=== PATIENT | female | born 1965 | race Caucasian/White ===

== ENCOUNTER 2018-07-17 10:30 | Inpatient (IN) | payer OTHER ==
[~2018-07-17 10:30] MED LIST: Buffered Lidocaine 0.9% SYRIN* 5 ML/SYR SYRINGE INTRADERM ONE; Methylene Blue 0.5 %* 50 MG/10 ML AMP IV ONE
[2018-07-17] MEDS ORDERED: Heparin VIAL(*) 5000 UNITS/ML VIAL (FIVE THOUSAND) ONE (10:41)
[2018-07-17] MEDS ORDERED: Clindamycin 900 MG/D5W BAG(*) 900 MG/50 ML BAG IVPB ONE (10:41)
[2018-07-17] MEDS ORDERED: Ciprofloxacin 400MG IVPREMIX(* 400 MG/200 ML BAG ONE (10:42)
[2018-07-17] MEDS ORDERED: Bupivacaine 0.25% W/EPI* 10 ML SDV ONE (11:38)
[2018-07-17] MEDS ORDERED: Propofol* 10 MG/ML 20 ML BTL IV PUSH ONE (11:46)
[2018-07-17] MEDS ORDERED: Midazolam* 1 MG/ML 5 ML VIAL (5 MG) ONE (11:46)
[2018-07-17] MEDS ORDERED: Atracurium* 10 MG/ML 10 ML VIAL ONE (11:46)
[2018-07-17] MEDS ORDERED: fentaNYL* 50 MCG/ML 2 ML VIAL (100 MCG VIAL) ONE ×3 (11:46→15:06)
[2018-07-17] MEDS ORDERED: Dexamethasone IV* 4 MG/ML 1 ML (4 MG) ONE (12:08)
[2018-07-17] MEDS ORDERED: Scopolamine 1.5 mg* PATCH TRANSDERM PRN (13:37)
[2018-07-17] MEDS ORDERED: DiMENhydriNATE IV* 50 MG/ML VIAL IV PUSH PRN (13:37)
[2018-07-17] MEDS ORDERED: Ondansetron INJ* 2 MG/ML VIAL IV PRN ×2 (13:37→15:06)
[2018-07-17] MEDS ORDERED: Acetaminophen IV 1GM/100ML * 1,000 MG/100 ML VIAL IVPB ONE (13:37)
[2018-07-17] MEDS ORDERED: Naloxone* 0.4 MG/ML 1 ML VIAL IV PRN (13:37)
[2018-07-17] MEDS ORDERED: Metoclopramide IV* 5 MG/ML 2 ML VIAL ONE (14:37)
[2018-07-17] MEDS ORDERED: Glycopyrrolate IV* 0.2 MG/ML 1 ML VIAL ONE (14:37)
[2018-07-17] MEDS ORDERED: Neostigmine Methylsulfate* 1 MG/ML 10 ML VIAL (1 mg/ml) ONE (14:37)
[2018-07-17] MEDS ORDERED: Ondansetron INJ* 2 MG/ML VIAL ONE ×2 (14:37→15:13)
[2018-07-17] MEDS: Ketorolac INJ* 30 MG/ML 1 ML VIAL IV PRN ×2 (14:38→19:45)
--- NOTE | 2018-07-17 15:05 | OP ---
Operative Report - Blank - Operative Report Date of Operation: 07/17/18 Note: Brief Operative Note Preop Dx: morbid obesity; hx Lyly fundoplication Postop Dx: same Procedure: Laparoscopic takedown of fundoplication; Antoinette en Y gastric bypass Anesthesia: GET Surgeon: Elliot [employer] Teacher: DHEERAJ Lr Fluids: 2500 ml cyrstalloid EBL: 50 ml Specimen: none Drains: one #7 KIM drain Findings: dictated
[2018-07-17] MEDS ORDERED: diPHENhydraMINE IV* 50 MG/ML 1 ml VIAL (BENADRYL) SLOW PUSH PRN (15:06)
[2018-07-17] MEDS ORDERED: HYDROmorphone INJ1* 1 MG/ML SYRINGE IV PRN ×2 (15:06)
[2018-07-17] MEDS ORDERED: Acetaminophen ADULT LIQ* 650 MG/20.3 ML UDC PO PRN (15:06)
[2018-07-17] MEDS ORDERED: Acetaminophen IV 1GM/100ML * 100 ML ONE (15:06)
[2018-07-17] MEDS ORDERED: HYDROcodone/ACET. 7.5/325 LIQ* 15 ML UDC PO PRN (15:06)
[2018-07-17] MEDS: fentaNYL* 50 MCG/ML 2 ML VIAL (100 MCG VIAL) IV PRN ×4 (15:09→15:35)
[2018-07-17] MEDS ORDERED: Ondansetron ODT TAB* 4 MG SL PRN (15:12)
[2018-07-17] MEDS ORDERED: Dextrose 50% Syringe 50 ML* 25 GM/50 ML SYRINGE IV PUSH PRN (15:16)
[2018-07-17] MEDS ORDERED: DiMENhydriNATE IV* 50 MG/ML VIAL ONE (15:32)
[2018-07-17] MEDS ORDERED: Scopolamine 1.5 mg* PATCH ONE (16:00)
[2018-07-17] MEDS ORDERED: HYDROmorphone INJ1* 1 MG/ML SYRINGE ONE (16:00)
[2018-07-17] MEDS: HYDROmorphone INJ1* 1 MG/ML SYRINGE IV PRN ×3 (16:05→16:18)
[2018-07-17] MEDS: Insulin LISPRO* 1 UNITS UNIT SUBCUT SCH (18:18)
[2018-07-17] MEDS: Metoclopramide IV* 5 MG/ML 2 ML VIAL IV PRN (19:15)
[2018-07-17] MEDS: Famotidine IV* 10 MG/ML 2 ML (20 mg) IV SLOW PU SCH (21:28)
[2018-07-17] MEDS: Heparin VIAL(*) 5000 UNITS/ML VIAL (FIVE THOUSAND) SUBCUT SCH (21:32)
[2018-07-18] MEDS: Insulin LISPRO* 1 UNITS UNIT SUBCUT SCH ×5 (00:21→23:32)
[2018-07-18] MEDS: Metoclopramide IV* 5 MG/ML 2 ML VIAL IV PRN (01:58)
[2018-07-18] MEDS: Ketorolac INJ* 30 MG/ML 1 ML VIAL IV PRN ×3 (01:59→21:31)
[2018-07-18] MEDS: Levothyroxine INJ* 100 MCG/5 ML VIAL IV SCH (06:02)
[2018-07-18] MEDS: Heparin VIAL(*) 5000 UNITS/ML VIAL (FIVE THOUSAND) SUBCUT SCH ×3 (06:03→21:24)
[2018-07-18 06:14] LABS: ABS Basophils 0 10^3/ul (0-0.2); ABS Eosinophils 0 10^3/ul (0-0.6); ABS Lymphocytes 1.4 10^3/ul (1.0-4.8); ABS Monocytes 0.7 10^3/ul (0-0.8); ABS Neutrophils 7.7 10^3/ul (1.5-7.7); ABS Nucleated RBC 0 10^3/ul; Eosinophil % 0 % (0-6); Hematocrit 38 % (35-47); Hemoglobin 12.8 g/dl (12.0-16.0); Lymphocyte % 14.2 % (25-47); Mean Corpuscular HGB Conc 34 g/dl (31-36); Mean Corpuscular Hemoglobin 31 pg (27-31); Mean Corpuscular Volume 90 fL (80-97); Mean Platelet Volume 9.1 um3 (7.4-10.4); Nucleated Red Blood Cells % 0; Platelet Count 266 10^3/ul (150-450); Red Cell Distribution Width 13 % (10.5-15); White Blood Count 9.8 10^3/ul (3.5-10.8)
[2018-07-18 06:40] LABS: EGFR Non-African American 76.7 (>60)
[2018-07-18] MEDS: Famotidine IV* 10 MG/ML 2 ML (20 mg) IV SLOW PU SCH ×2 (08:22→21:24)
--- NOTE | 2018-07-18 08:53 | RAD ---
HISTORY: s/p gastric bypass COMPARISONS: May 14, 2018 TECHNIQUE: A single contrast fluoroscopic study was performed of the esophagus and upper GI tract. Water-soluble liquid contrast was administered under fluoroscopic observation. Multiple digital spot images were obtained Total fluoroscopy time is 0.4 minutes . FINDINGS: ESOPHAGUS: The esophagus is normal in contour, course, and caliber. There is no stricture or web. Contrast passes easily through the gastroesophageal junction into the stomach. There is normal esophageal motility. STOMACH: The patient appears to be status post Antoinette-en-Y gastrectomy. Gastric remnant is unremarkable with no passage into the jejunum. There is no appreciable obstruction or extravasation. No reflux was elicited on the current examination. DUODENUM: The patient is status post Antoinette-en-Y gastrectomy. SMALL BOWEL: The visualized small bowel is unremarkable.. IMPRESSION: STATUS POST ANTOINETTE-EN-Y GASTRECTOMY WITHOUT APPRECIABLE OBSTRUCTION OR EXTRAVASATION. CPT II Codes: G9500
--- NOTE | 2018-07-18 12:29 | PN ---
Progress Note - Progress Note Date of Service: 07/18/18 SOAP: Subjective:POD#1 s/p lap takedown alla fundoplication,rny gastric bypass minimal discomfort,mild nausea,passing flatus [] Objective:afeb,VSS,uo jane large;lungs:few rales bibasilar;heart:RRR;abd+bs, soft;incisions intact with dsg,no active drainage;KIM sanguinous,20ml emptied;ext :nontender calves UGI:no extravasation [] Assessment:doing well POD#1 [] Plan:start bariatric clears remove jane catheter ambulate push inspiron []
[2018-07-18] MEDS: D5W 1/2 NS KCl 20 Meq 1000 ML* 1,000 ML IV SCH ×2 (14:33→22:28)
[2018-07-19] MEDS: Levothyroxine INJ* 100 MCG/5 ML VIAL IV SCH (05:49)
[2018-07-19] MEDS: Insulin LISPRO* 1 UNITS UNIT SUBCUT SCH ×2 (05:49→12:10)
[2018-07-19] MEDS: Heparin VIAL(*) 5000 UNITS/ML VIAL (FIVE THOUSAND) SUBCUT SCH ×2 (05:50→14:24)
[2018-07-19] MEDS: D5W 1/2 NS KCl 20 Meq 1000 ML* 1,000 ML IV SCH (06:29)
[2018-07-19] MEDS: Ketorolac INJ* 30 MG/ML 1 ML VIAL IV PRN ×2 (08:04→14:22)
[2018-07-19] MEDS: Famotidine IV* 10 MG/ML 2 ML (20 mg) IV SLOW PU SCH (08:04)
[2018-07-19 12:15] VITALS: BP 101/73
--- NOTE | 2018-07-20 05:24 | OP ---
CC: Dr. Pepe Pond; Dr. Amezcua; [facility] OPERATIVE REPORT: DATE OF OPERATION: 07/17/18 DATE OF : 61 SURGEON: Maico Zarate MD ASSISTANTS: 1. Dr. Soto. 2. DHEERAJ Orr ANESTHESIOLOGIST: Dr. Leija. ANESTHESIA: General. PRE-OP DIAGNOSES: Clinically severe obesity, obstructive sleep apnea, gastroesophageal reflux diseas e. POST-OP DIAGNOSES: Clinically severe obesity, obstructive sleep apnea, gastroesophageal reflux disea se. OPERATIVE PROCEDURE: Laparoscopic takedown of Lyly fundoplication and Antoinette-en-Y gastric bypass. BLOOD LOSS: 50 cc. FLUIDS: 2500 cc crystalloid fluid given. SPECIMENS: None. DRAINS: #7 KIM drain left at the gastrojejunostomy anastomosis. DESCRIPTION OF PROCEDURE: The patient was identified in the preoperative area. She was marked. Cons ent was signed. She was taken to the operating room, placed in the operating table in supine positio n. Preoperative antibiotics given. Sequential devices were placed on bilateral lower extremities. G eneral anesthesia was induced. The patient's abdomen was prepped and draped in a standard surgical f ashion. A time-out was performed. Folds of the umbilicus were elevated anteriorly and a Veress needle was inserted into the abdominal c avity, which was then allowed to insufflate to a pressure of 15 mmHg. A 12-mm trocar was inserted in the upper abdomen just left of midline. Laparoscope was inserted through this. There was no evidenc e of injury from the trocar insertion or from the Veress needle, which was then removed. Additional trocar was then placed in the following position: A 12-mm and 5-mm in the left upper quadrant and a 12-mm and 5-mm in the right upper quadrant. Review of the abdomen showed some attachments to the ant erior abdominal wall inferiorly. Also, showed normal-appearing liver. The anterior portion of the s tomach appeared intact with some scarring from previous Lyly fundoplication. The patient was placed in the steep reverse Trendelenburg and a Alisson retractor was inserted thro ugh the subxiphoid port and the liver was retracted anteriorly at the site of the stomach from the Ni ssen fundoplication. Sharp dissection was then carried out at the site to free the stomach from live r edge. We then next approached the fundoplication portion. Sutures were cut sharply and this allow ed the stomach to unfurl somewhat. The wrap itself was incredibly loose, was easily dissected at thi s site. Next, we attended to the superior aspect of the stomach, both blunt and sharp dissections were utiliz ed to free the stomach at the left crura and it did lead to some bleeding along the area of crura as we entered into diaphragmatic musculature to be able to free the stomach up from this site. A retrogastric tunnel was made at the portion of the lesser curvature that appeared an intact and non -scar tissue. We then fired a 45-mm perea VARSHA stapling device across this. The stomach pouch was then completed with an additional 60-mm perea VARSHA stapling device heading up toward the angle of His and th en a second one to complete the transection. We did place an Carmen tube down first to ensure the clementina ropriate location of our staplers. The stomach pouch appeared intact with the appropriate sizing wit h good vascularity. The Alisson retractor had been reset somewhere along after the initial dissect ion, so we could better see the diaphragm. The hiatus was somewhat open but I did not consider dissec ting out the posterior stitches from the previous cruroplasty. It did show evidence of some retracti on of the proximal stomach through the hiatus but incision was made to just perform a gastric bypass. Next, the omentum was taken down from the anterior abdominal wall with LigaSure device. We then spli t the omentum at the mid portion of it, so that we could bring our small bowel up to the stomach pouc h without tension. Approximately 50 cm was counted off from the Ligament of Treitz. Once this was i dentified, we then brought this up as an omega loop to the gastric pouch. This was sutured to gastri c pouch lateral stapled edge with 2-0 silk sutures. Next, the gastrojejunostomy was then created making a gastrostomy over the Carmen tube and making an e nterotomy and mating the two with a 30-mm perea VARSHA stapling device. The anastomosis was wide open. W e utilized the whole stapler. Next, the common defect was reapproximated with 3-0 PDS suture in a running fashion, starting out sup eriorly and then inferiorly and tying them in the middle. Next, the Carmen tube was advanced through the anastomosis with ease, it was backed off, and then we m amaya a window at the mesentery of the small bowel, this omega loop, and transected the small bowel wit h a 45-mm perea VARSHA stapling device. Staple was crossed, but it did not fully cut fully with sci ssors. Next, the Carmen tube was advanced through the anastomosis again after clamping of the proximal Antoinette l imb. Methylene blue dye test was performed in the normal fashion and showed no evidence of blue dye. This was suctioned out through the tubing by the anesthesiologist and attention was turned towards the Antoinette limb. Approximately, 80 cm was counted off from this Antoinette limb and this will become the jejunojejunostomy. This was brought in apposition to the biliopancreatic limb, enterotomies were made, and a jejunojeju nostomy was created with a 60-mm perea VARSHA stapling device. Anastomosis was wide open. There was no e vidence of kinking. There was no bleeding and the common defect was reapproximated with interrupted 2 -0 silk sutures in [id number]-[id number] fashion. Mesenteric defect was similarly closed. Review of the abdomen showed no bleeding in the pelvis. The anterior abdominal wall showed no eviden ce of bleeding. No hernias. Review of the stomach pouch showed no evidence of bleeding. There was some evidence of oozing at the diaphragm. We utilized Surgicel at the site, placed it over the oozin g area without making attempt at cautery. Next, a #7 KIM drain was placed in the abdomen and brought out through the left lateral most port site and sutured to the skin with 3-0 Prolene sutures. The Alisson retractor was removed. I reviewed both anastomosis, showed that they were viable, intact. The abdomen was allowed to collapse. Trocar was removed under direct vision. All additional incisions were reapproximated with 4-0 Monocryl sub cuticular sutures followed by Steri-Strips, sterile dressing. The patient tolerated the procedure we ll, was woken up in the OR, and transferred to the PACU in stable condition. [id number]/[facility] #: [id number]
--- NOTE | 2018-07-20 06:14 | DS ---
CC: [facility]; Primary care doctor * DISCHARGE SUMMARY: DATE OF ADMISSION: 07/17/18 DATE OF DISCHARGE: 07/19/18 HOSPITAL COURSE: Ms. Leon presented to the hospital with a diagnosis of clinically severe obesity, underwent a surgical intervention on the date of admission. This consisted of take down of Lyly fundoplication and a Antoinette-en- Y gastric bypass. The patient did have a KIM drain left at the end of procedure. Please see operative report for details. In the postoperative period, the patient did well, was ambulating on postoperative day 0. On postoperative day 1, she underwent an upper GI study which was within normal limits and the patient was started on oral diet. The patient was doing well, tolerating diet with minimal nausea. By postoperative day 2, the patient was ambulatory, voiding on her own. KIM drain was removed. The patient was scheduled for discharge and follow up in the office in 4 days. PHYSICAL EXAMINATION: Physical exam was done on day of discharge. The patient is afebrile. Vital signs stable. Alert and oriented x3, in no apparent distress. Head, ears, eyes, nose, and throat: Normocephalic, atraumatic. Sclerae anicteric. Mucous membranes are moist. Lungs: Clear to auscultation bilaterally. Abdomen: Soft, nondistended, tender at the incision site. KIM drain with serous output, was removed without event. Extremities: Within normal limits. No calf tenderness. PLAN: Discharge home. Follow up on Sunday in our office. The patient will continue all her preoperative medications. She understands the plan. She understands she can contact our office should there be any changes. [id number]/[facility] #: [id number] MTDD
[2018-07-20] MEDS ORDERED: Scopolamine PATCH Remove* 1 NOTE MISC PATCH OFF ONE (13:38)
== END 2018-07-19 15:00 | disposition home or self-care (01) | DRG 621 ==
LOC: AA 10:30 → SSU 16:58
PROVIDERS: ADMIT Surgery; ATTEND Surgery
PROC: 0D164ZA Bypass Stomach to Jejunum, Percutaneous Endoscopic Approach (ICD-10-PCS; 2018-07-17)
PROC: 0DQ44ZZ Repair Esophagogastric Junction, Percutaneous Endoscopic Approach (ICD-10-PCS; principal; 2018-07-17 11:45)
DX: E66.01 Morbid (severe) obesity due to excess calories (principal); G47.33 Obstructive sleep apnea (adult) (pediatric); K21.9 Gastro-esophageal reflux disease without esophagitis; E11.9 Type 2 diabetes mellitus without complications; I10 Essential (primary) hypertension; F32.9 Major depressive disorder, single episode, unspecified; M10.9 Gout, unspecified; E03.9 Hypothyroidism, unspecified; E78.5 Hyperlipidemia, unspecified; K22.70 Barrett's esophagus without dysplasia; Z98.51 Tubal ligation status; Z90.5 Acquired absence of kidney; Z83.3 Family history of diabetes mellitus; Z82.49 Family history of ischemic heart disease and other diseases of the circulatory system; Z82.3 Family history of stroke; Z80.3 Family history of malignant neoplasm of breast; Z83.49 Family history of other endocrine, nutritional and metabolic diseases; Z87.891 Personal history of nicotine dependence; Z68.38 Body mass index [BMI] 38.0-38.9, adult; Z88.1 Allergy status to other antibiotic agents; Z88.8 Allergy status to other drugs, medicaments and biological substances
CPT/HCPCS: 36415; 43644; 74246; 80048; 81025; 85025; A9270-GY; J0744; J1100; J1170; J1240; J1644; J1885; J2250; J2405; J2704; J2710; J2765; J3010

== ENCOUNTER 2018-12-13 12:56 | Emergency (ER) | payer OTHER ==
[2018-12-13] MEDS ORDERED: Ondansetron ODT TAB* 4 MG PO ONE (13:52)
[2018-12-13] MEDS ORDERED: Ondansetron INJ* 2 MG/ML VIAL IV ONE (13:55)
[2018-12-13] MEDS ORDERED: NS 0.9% 1000 ML** 1,000 ML IV ONE (13:56)
[2018-12-13] MEDS ORDERED: diPHENhydraMINE IV* 50 MG/ML 1 ml VIAL (BENADRYL) IV ONE (13:58)
[2018-12-13] MEDS ORDERED: Ketorolac INJ* 30 MG/ML 1 ML VIAL IV PUSH ONE (13:59)
--- NOTE | 2018-12-13 14:00 | UC ---
Headache HPI - HPI Summary HPI Summary: 53 y/o female presents to the urgent care c/o migraine MCCALL since Sunday night . Pt reports PMHX of Migraine MCCALL for which she takes Elitriptan. However this time is has not resolved her MCCALL. Pt reports she has Hx of Vasovagal syncope at times which syncs w/ her ovulation. This past Sunday she had an episode for a few seconds and she thinks that is what triggered her Migraine MCCALL. However she also has Hx of Anemia for which she take Iron pills. She has an appt w/ her PCP next week to check on her iron levels. She has now photophobia and phonophobia. She also has the aura which has been constant. She took Ibuprofen 400 PO last night. MCCALL now is 8/10 associated w/ nausea. Pt denies fever, dizziness, SOB, chest pain, abdominal pain,V/D - History Of Current Complaint Chief Complaint: UCHeadache Stated Complaint: SEVERE HEADACHE Time Seen by Provider: 12/13/18 13:32 Hx Obtained From: Patient Onset/Duration: Gradual Onset, Lasting Days - 4 days, Still Present, Worse Since - yesterday Onset Of Symptoms: Gradual Initially Headache Was: Initial Pain Scale(0-10)= - 3 Currently Pain Is: Current Pain Scale(0-10)=, Severe Pain Intensity: 8 Pain Scale Used: 0-10 Numeric Timing: Constant Character: Migraine Location of Headache: Occipital - radaiting to the frotal head Aggravating Factor(s): Bright Lights, Other - sounds Allevating Factor(s): Rest, Medication Associated Signs And Symptoms: Positive: Nausea, Visual Changes. Negative: Dizziness, Seizure, Vomiting, Sinus Pressure, Fever, Neck Pain, Neck Stiffness, Decreased LOC Related History: Similar Episode/DX As: - Migraine - Risk Factors SAH Risk Factors: Negative Meningitis Risk Factors: Negative SDH Risk Factors: Negative Temporal Arteritis Risk Factors: Negative - Allergies/Home Medications Allergies/Adverse Reactions: Allergies Allergy/AdvReac Type Severity Reaction Status Date / Time bupropion Allergy Hives Verified 12/13/18 13:08 cefaclor [From Ceclor] Allergy Anaphylatic Verified 12/13/18 13:08 Shock febuxostat [From Uloric] Allergy Unknown Verified 12/13/18 13:08 Reaction Details Home Medications: Home Medications Eletriptan Hydrobromide [Relpax] 20 mg PO BID 12/13/18 [History Confirmed ] PMH/Surg Hx/FS Hx/Imm Hx Previously Healthy: Yes Endocrine History: Hypothyroidism Other Endocrine History: Anemia, Gout Cardiovascular History: Hypertension Other Cardiovascular History: Vasovagal syncope GI/ History: Gastroesophageal Reflux - Surgical History Surgical History: Yes Surgery Procedure, Year, and Place: bariatric surgery. kidney donated. ectopic - Family History Known Family History: Positive: Hypertension - Social History Occupation: Employed Full-time Lives: With Family Alcohol Use: Rare Substance Use Type: None Smoking Status (MU): Former Smoker Amount Used/How Often: 1/2 PPD X 20 YEARS Have You Smoked in the Last Year: No When Did the Patient Quit Smoking/Using Tobacco: 3 YEARS AGO - Immunization History Most Recent Influenza Vaccination: 2018 Most Recent Pneumonia Vaccination: HAS NOT HAD Review of Systems All Other Systems Reviewed And Are Negative: Yes Constitutional: Positive: Negative Skin: Positive: Negative Eyes: Positive: Photophobia ENT: Positive: Negative, Other - phonophobia Respiratory: Positive: Negative Cardiovascular: Positive: Negative Gastrointestinal: Positive: Nausea Genitourinary: Positive: Negative Motor: Positive: Negative Neurovascular: Positive: Negative Musculoskeletal: Positive: Negative Neurological: Positive: Headache Psychological: Positive: Negative Is Patient Immunocompromised?: No Physical Exam - Summary Physical Exam Summary: Vital Signs Reviewed: Yes General: well developed, well nourished female laying in the examining w/ coleman distress. Eyes: Positive: Conjunctiva Clear - -Eyes: sclera and conjunctiva clear, corneas grossly clear, PEERLA, EOMI, no nystagmus, no ptosis,no photophobia, normal fundoscopic exam, normal visual fabian,, Other: - -Head:scalp atraumatic , NT, no trigger points ENT: Positive: Normal ENT inspection, Hearing grossly normal, Pharynx normal, TMs normal - B/L external ear canals clear, Other: - No TMJ tenderness. Negative: Nasal congestion, Nasal drainage, Tonsillar swelling, Tonsillar exudate Dental Exam: Normal Neck: Positive: Supple, Nontender, No Lymphadenopathy Respiratory: Positive: Chest non-tender, Lungs clear, Normal breath sounds, No respiratory distress Cardiovascular: Positive: RRR, No Murmur, Pulses Normal, Brisk Capillary Refill Abdomen Description: Positive: Nontender, No Organomegaly, Soft. Negative: CVA Tenderness (R), CVA Tenderness (L) Bowel Sounds: Positive: Present Musculoskeletal: Positive: Strength Intact, ROM Intact, No Edema Neurological: Positive: Alert - A&OX3, CNII-XII WNL, speech, memory and expression WNL,, Muscle Tone Normal - Muscle strength 5/5 in both upper and lower extremities. Normal gait, negative Romberg test and good coordination finger to nose, heel to osorio WNL, sensation intact. Reflexes WNL Psychological Exam: Normal Skin: Positive: warm and dry , no rashes or petechiae observe Triage Information Reviewed: Yes Vital Signs: Initial Vital Signs Temp 97.5 F 12/13/18 13:02 Pulse 54 12/13/18 13:02 Resp 18 12/13/18 13:02 BP 133/76 12/13/18 13:02 Pulse Ox 96 12/13/18 13:02 Headache Course/Dx - Course Course Of Treatment: 53 y/o female presents to the urgent care c/o migraine MCCALL since Sunday night . Pt reports PMHX of Migraine MCCALL for which she takes Elitriptan. However this time is has not resolved her MCCALL. Pt reports she has Hx of Vasovagal syncope at times which syncs w/ her ovulation. This past Sunday she had an episode for a few seconds and she thinks that is what triggered her Migraine MCCALL. However she also has Hx of Anemia for which she take Iron pills. She has an appt w/ her PCP next week to check on her iron levels. She has now photophobia and phonophobia. She also has the aura which has been constant. She took Ibuprofen 400 PO last night. MCCALL now is 8/10 associated w/ nausea. Pt denies fever, dizziness, SOB, chest pain, abdominal pain,V/D. Hx obtained. PE: WNL. Pt is hemodynamically stable, A&OX3 w/o any focal neurological deficit. Pt has taken Ibuprofen 400mg PO. last dose taken was last night. However Pt w/ Hx of Antoinette [place] bariatric surgery on 07/17/2019. Pt requests a Toradol IM inj. However I am concerned w/ side effects of GI bleeding. Pt's symptoms discussed w/ DR Smith who recommended IV fluids, Benadryl, Zofran PO to alleviate Migraine. Pt educated on the risk of NSAIDs side effectes. However , Pt and insisted and she still wants the Toradol inj. Pt given IV NS bolus, Zofran IV, Toradol 30mg , Benadryl and Famotidine PO to alleviate symptoms. Pt tolerated well medications and after 1hr MCCALL decrease and photophobia, phonophobia and nausea resolved. Pt Rx Zofran PO.Strongly advised not to tkae NSAID's and to f/uher PCP in 2-3 days for further management on her Migrained MCCALL and vasovagal syncope. Also advised to go immediately to the ER if symptoms worsen for further management. Pt understood and agreed and left the clinic hemodynamically stable, A&OX3, feeling better - Differential Dx/Diagnosis Differential Diagnosis/HQI/PQRI: TIA, Migraine, Sinus Headache, Tension Headache , Viral Syndrome Provider Diagnosis: Migraine with acute onset aura, Nausea alone Discharge - Sign-Out/Discharge Documenting (check all that apply): Patient Departure - d/c home All imaging exams completed and their final reports reviewed: No Studies - Discharge Plan Condition: Stable Disposition: HOME Prescriptions: Ondansetron ODT TAB* [Zofran 4 MG Odt TAB*] 4 mg PO Q6H PRN #9 tab.odt PRN Reason: Nausea/Vomiting Patient Education Materials: Migraine Headache (ED) Referrals: Pepe Pond MD [Primary Care Provider] - 2 Days Additional Instructions: 1-Please take Zofran PO as directed only if nausea continues or vomiting develops. Take Benadryl PO q6hrs prn to alleviate also Migraine MCCALL 2- Continue taken the Relpax or Tylenol PO if Migraine Headache returns. Please stop taking Ibuprofen or Indometacin PO. You were givne a Toradol IM inj as per your request. However consult w/ your PCP if your can take the Indometacin PO for your Gout flare ups. 3-Please f/u w/ your PCP in 2-3 days for further management in your Migraine MCCALL and Anemia and vasovagal syncope. 4-If you develops severe headache with dizziness, visual disturbances or any neurological deficit go immediately to the ER for further treatment. - Billing Disposition and Condition Condition: STABLE Disposition: Home
[2018-12-13] MEDS ORDERED: Famotidine TAB* 20 MG PO ONE (14:10)
[2018-12-13 16:13] VITALS: BP 104/56
== END 2018-12-13 16:24 | disposition home or self-care (01) ==
LOC: UCEAST 12:56
DX: G43.109 Migraine with aura, not intractable, without status migrainosus (principal); R11.0 Nausea; I10 Essential (primary) hypertension; E03.9 Hypothyroidism, unspecified; D64.9 Anemia, unspecified; M10.9 Gout, unspecified; K21.9 Gastro-esophageal reflux disease without esophagitis; R55 Syncope and collapse; Z88.3 Allergy status to other anti-infective agents; Z88.8 Allergy status to other drugs, medicaments and biological substances; Z87.891 Personal history of nicotine dependence
CPT/HCPCS: 96361; 96374; 96375; 99212; A9270-GY; G0463; J1200; J1885; J2405

== ENCOUNTER 2021-06-10 09:15 | Observation (INO) ==
[2021-07-12] MEDS ORDERED: Lactated Ringers 1000 ml BAG 1,000 ML IV SCH (06:00)
[2021-07-12] MEDS ORDERED: Buffered Lidocaine 1% SYRIN 1 ml INTRADERM ONE (06:00)
[2021-07-12] MEDS ORDERED: ceFAZolin 2 GM in NS PREMIX 2 GM/100 ML BAG IVPB ONE (08:23)
[2021-07-12] MEDS ORDERED: Propofol 10 MG/ML 20 ML BTL ONE (08:56)
[2021-07-12] MEDS ORDERED: Phenylephrine IV 10 MG/ML 1 ml VIAL ONE ×2 (08:58)
[2021-07-12] MEDS ORDERED: Ropivacaine 5 MG/ML 20 ML VIAL 0.5% (100 MG) ONE (09:04)
[2021-07-12] MEDS ORDERED: Midazolam 5 mg/5 ml VIAL 1 mg/ml 5 ml VIAL (5 mg) ONE (09:14)
[2021-07-12] MEDS ORDERED: fentaNYL 100 mcg/2 ml 50 MCG/ML VIAL ONE ×3 (09:14→12:20)
[2021-07-12] MEDS ORDERED: ROPIVACAINE 5 MG/ML 30 ML BTL (0.5%) ONE (09:14)
[2021-07-12] MEDS ORDERED: Glycopyrrolate IV 0.2 MG/ML 1 ML VIAL ONE (10:58)
[2021-07-12] MEDS ORDERED: EPHEDrine (Pressors) 50 MG/ML VIAL ONE (11:06)
[2021-07-12] MEDS ORDERED: diPHENhydraMINE 25 mg TAB PO PRN (11:26)
[2021-07-12] MEDS ORDERED: Magnesium Hydroxide LIQ 30 ML UDC PO PRN (11:26)
[2021-07-12] MEDS ORDERED: Ondansetron ODT 4 mg TAB 4 MG TAB PO PRN (11:26)
[2021-07-12] MEDS ORDERED: diPHENhydraMINE IV 50 MG/ML 1 ml VIAL (BENADRYL) IV PRN ×2 (11:26→11:30)
[2021-07-12] MEDS ORDERED: Lactulose 30 ml UDC PO PRN (11:26)
[2021-07-12] MEDS ORDERED: Prochlorperazine 5 mg/ml 2 ml VIAL (10 mg) IV PRN (11:30)
[2021-07-12] MEDS ORDERED: Naloxone 0.4 mg VIAL 0.4 mg/ml 1 ml VIAL IV PRN (11:30)
[2021-07-12] MEDS ORDERED: HYDROmorphone 1 MG/1 ML SYRINGE ONE (13:01)
[2021-07-12] MEDS: HYDROmorphone 1 MG/1 ML SYRINGE IV PRN ×5 (13:02→13:33)
[2021-07-12] MEDS: Morphine 2 MG/ML SYRINGE IV PRN ×2 (14:29→18:23)
[2021-07-12] MEDS: Ondansetron 4 mg VIAL 2 MG/ML 2 ml VIAL IV PRN (14:29)
[2021-07-12] MEDS: Lactated Ringers 1000 ml BAG 1,000 ML IV SCH (14:30)
[2021-07-12] MEDS ORDERED: Venlafaxine XR 75 mg PO PRN (14:40)
[2021-07-12] MEDS: Clindamycin 600 MG/D5W BAG 600 MG/50 ML BAG IV SCH (18:18)
[2021-07-12] MEDS ORDERED: Calcium Carb (TUMS) 500 mg CHEW TAB PO SCH (21:00)
[2021-07-12] MEDS: Magnesium Hydroxide LIQ 30 ML UDC PO SCH (21:33)
[2021-07-12] MEDS: Morphine ER 15 mg TAB ** extended release PO SCH (21:34)
[2021-07-13] MEDS: Lactated Ringers 1000 ml BAG 1,000 ML IV SCH (01:34)
[2021-07-13] MEDS: Clindamycin 600 MG/D5W BAG 600 MG/50 ML BAG IV SCH ×2 (02:26→11:01)
[2021-07-13 06:18] LABS: Hematocrit 34 % (35-47); Hemoglobin 11.6 g/dL (12.0-16.0); Mean Platelet Volume 8.9 fL (7.4-10.4); Platelet Count 205 10^3/uL (150-450)
[2021-07-13 06:35] LABS: Calcium 8.9 mg/dL (8.6-10.3); Potassium 4.1 mmol/L (3.5-5.0)
[2021-07-13] MEDS ORDERED: Vitamin THERAPEUTIC TAB PO SCH (09:00)
[2021-07-13] MEDS ORDERED: Pneumococcal Vac 23-Polyvalent IM ONE (09:00)
[2021-07-13] MEDS ORDERED: Flu vaccine *QUAD* 2021-22* 0.5 ML SYRINGE IM ONE (09:00)
[2021-07-13] MEDS ORDERED: Venlafaxine XR 75 mg PO SCH (09:00)
[2021-07-13] MEDS: Ondansetron 4 mg VIAL 2 MG/ML 2 ml VIAL IV PRN (09:00)
[2021-07-13] MEDS: Magnesium Hydroxide LIQ 30 ML UDC PO SCH (09:41)
[2021-07-13] MEDS: Morphine ER 15 mg TAB ** extended release PO SCH (09:42)
[2021-07-13 11:22] VITALS: BP 120/64
== END 2021-07-13 14:35 | disposition home or self-care (01) ==
LOC: AA 07-12 08:02 → INTOOBSV 07-12 08:02 → SSU 07-12 14:07
PROVIDERS: ADMIT Orthopaedic Surgery Adult Reconstructive Orthopaedic Surgery; ATTEND Orthopaedic Surgery Adult Reconstructive Orthopaedic Surgery

== ENCOUNTER 2022-11-16 08:34 | Observation (INO) ==
[~2022-11-16 08:34] MED LIST changes: -Buffered Lidocaine 0.9% SYRIN* 5 ML/SYR SYRINGE INTRADERM ONE; +Buffered Lidocaine 1% SYRIN 1 ml INTRADERM ONE; +Lactated Ringers 1000 ml BAG 1,000 ML IV SCH; -Methylene Blue 0.5 %* 50 MG/10 ML AMP IV ONE
[2022-11-16] MEDS ORDERED: ceFAZolin 2 GM PREMIX 2 GM/50 ML BAG ONE (08:59)
[2022-11-16] MEDS ORDERED: Midazolam 5 mg/5 ml VIAL 1 mg/ml 5 ml VIAL (5 mg) ONE (10:19)
[2022-11-16] MEDS ORDERED: ROPIVACAINE 5 MG/ML 30 ML BTL (0.5%) ONE ×2 (10:19→10:54)
[2022-11-16] MEDS ORDERED: fentaNYL 100 mcg/2 ml 50 MCG/ML VIAL ONE (10:19)
[2022-11-16] MEDS ORDERED: Lidocaine 2% PF 5 ML VIAL ONE (11:23)
[2022-11-16] MEDS ORDERED: Midazolam 2 mg/2 ml VIAL 1 mg/ml 2 ml VIAL (2 mg) ONE (11:30)
[2022-11-16] MEDS ORDERED: fentaNYL 100 mcg/2 ml 50 MCG/ML VIAL IV PRN (11:54)
[2022-11-16] MEDS ORDERED: Naloxone 0.4 mg VIAL 0.4 mg/ml 1 ml VIAL IV PRN (11:54)
[2022-11-16] MEDS ORDERED: Acetaminophen IV 1 GM/100ML 1,000 MG/100 ML BAG IV ONE (12:05)
[2022-11-16] MEDS ORDERED: Ondansetron 4 mg VIAL 2 MG/ML 2 ml VIAL ONE (12:05)
[2022-11-16] MEDS ORDERED: Dexamethasone IV 4 MG/ML VIAL 1 ml VIAL ONE (12:05)
[2022-11-16] MEDS ORDERED: Propofol 10 MG/ML 20 ML BTL ONE (13:37)
[2022-11-16] MEDS ORDERED: Lactulose 30 ml UDC PO PRN (13:55)
[2022-11-16] MEDS ORDERED: Magnesium Hydroxide LIQ 30 ML UDC PO PRN (13:55)
[2022-11-16] MEDS ORDERED: Ondansetron ODT 4 mg TAB 4 MG TAB PO PRN (13:55)
[2022-11-16] MEDS ORDERED: Morphine 2 MG/ML SYRINGE IV PRN (13:55)
[2022-11-16] MEDS ORDERED: Venlafaxine 25 mg TAB (NF) PO PRN (16:21)
[2022-11-16] MEDS: Ondansetron 4 mg VIAL 2 MG/ML 2 ml VIAL IV PRN (18:29)
[2022-11-16] MEDS: Lactated Ringers 1000 ml BAG 1,000 ML IV SCH (19:30)
[2022-11-16] MEDS: Cholecalciferol (VIT D3) 1,000 unit TAB PO SCH (21:23)
[2022-11-16] MEDS: Magnesium Hydroxide LIQ 30 ML UDC PO SCH (21:24)
[2022-11-16] MEDS: Clindamycin 600 MG/D5W BAG 600 MG/50 ML BAG IV SCH (22:50)
[2022-11-17] MEDS: Ondansetron 4 mg VIAL 2 MG/ML 2 ml VIAL IV PRN ×2 (01:03→09:12)
[2022-11-17] MEDS: Lactated Ringers 1000 ml BAG 1,000 ML IV SCH (04:12)
[2022-11-17] MEDS: Clindamycin 600 MG/D5W BAG 600 MG/50 ML BAG IV SCH (04:15)
[2022-11-17] MEDS ORDERED: Clindamycin 600 MG/D5W BAG 600 MG/50 ML BAG IV SCH (06:30)
[2022-11-17 07:14] VITALS: BP 116/74
[2022-11-17 07:59] LABS: Creatinine, Serum 0.79 mg/dL (0.51-0.95); Potassium 4.4 mmol/L (3.5-5.0); eGFR CKD-EPI 86.1 (>60)
[2022-11-17 08:32] LABS: Hematocrit 35 % (35-47); Hemoglobin 11.7 g/dL (12.0-16.0); Mean Platelet Volume 9.5 fL (7.4-10.4); Platelet Count 267 10^3/uL (150-450)
[2022-11-17] MEDS ORDERED: FOLIC ACID PO SCH (09:00)
[2022-11-17] MEDS ORDERED: Venlafaxine XR 75 mg PO SCH (09:00)
[2022-11-17] MEDS ORDERED: Vitamin THERAPEUTIC TAB PO SCH (09:00)
[2022-11-17] MEDS ORDERED: MECOBALAMIN PO SCH (09:00)
[2022-11-17] MEDS: Magnesium Hydroxide LIQ 30 ML UDC PO SCH (09:12)
[2022-11-17] MEDS: Cholecalciferol (VIT D3) 1,000 unit TAB PO SCH (09:12)
== END 2022-11-17 13:05 | disposition home or self-care (01) ==
LOC: SSU 08:34 → OR 08:34
PROVIDERS: ADMIT Orthopaedic Surgery Adult Reconstructive Orthopaedic Surgery; ATTEND Orthopaedic Surgery Adult Reconstructive Orthopaedic Surgery